=== PATIENT | male | born 1945 | race Caucasian/White ===

== ENCOUNTER 2022-11-21 16:01 | Inpatient (IN) | payer OTHER ==
[~2022-11-21] VITALS: Ht 177.8 cm; Wt 97.5 kg
[2022-11-21 17:20] LABS: BASO% 0.3 % (0-3); EOS% 0.1 % (0-8); IMMATURE GRANULOCYTES 1.2 % (0.0-5.0); LYMPH% 11.5 % (15-41); MEAN CELL VOLUME 92.2 fL CALC (80.0-100.0); MEAN CORPUSCULAR HGB 30.6 pG CALC (26.0-32.0); MEAN CORPUSCULAR HGB CONC 33.1 g/dL CAL (32.0-36.0); MONO% 5.9 % (2-13); NEUT# 12.59 thou/uL (1.82-7.42); RED BLOOD COUNT 1.8 mill/uL (4.70-6.10); RED CELL DISTRI WIDTH 15.2 % (11.5-15.5)
[2022-11-21 17:25] LABS: BILIRUBIN, TOTAL 0.2 mg/dL (0.0-1.4); CREATININE 2.3 mg/dL (0.7-1.3); TOTAL PROTEIN 5.4 g/dL (6.3-8.2)
[2022-11-21 17:38] LABS: HEMOGLOBIN 5.5 g/dl (14.0-18.0)
[2022-11-21 17:39] LABS: HEMATOCRIT 16.6 % (39.0-50.0)
[2022-11-21] MEDS ORDERED: POTASSIUM99 MG PO (18:45)
[2022-11-21] MEDS ORDERED: LEVOTHYROXIN50 MCG PO (18:45)
[2022-11-21] MEDS ORDERED: VERAPAMIL240 M1 PO (18:45)
[2022-11-21 21:11] VITALS: BP 125/70
[2022-11-21 22:38] VITALS: BP 98/73
[2022-11-21 22:55] VITALS: BP 137/82
[2022-11-21 23:40] VITALS: BP 119/78
[2022-11-22] VITALS (20 sets, daily range): BP systolic 111–141; BP diastolic 64–87
[2022-11-22 09:17] LABS: BASO% 0.4 % (0-3); EOS% 0.1 % (0-8); HEMATOCRIT 21.1 % (39.0-50.0); HEMOGLOBIN 7.2 g/dl (14.0-18.0); IMMATURE GRANULOCYTES 0.8 % (0.0-5.0); LYMPH% 13.9 % (15-41); MEAN CELL VOLUME 91.3 fL CALC (80.0-100.0); MEAN CORPUSCULAR HGB 31.2 pG CALC (26.0-32.0); MEAN CORPUSCULAR HGB CONC 34.1 g/dL CAL (32.0-36.0); NEUT# 9.51 thou/uL (1.82-7.42); NEUT% 74.8 % (42-76); RED BLOOD COUNT 2.31 mill/uL (4.70-6.10); RED CELL DISTRI WIDTH 14.7 % (11.5-15.5)
[2022-11-22 15:55] LABS: HEMOGLOBIN 7.1 g/dl (14.0-18.0)
[2022-11-23] VITALS (12 sets, daily range): BP systolic 109–157; BP diastolic 61–96
[2022-11-23 06:11] LABS: ALBUMIN 2.6 g/dL (3.2-5.0); CREATININE 2.2 mg/dL (0.7-1.3)
[2022-11-23 06:13] LABS: BASO% 0.4 % (0-3); EOS% 0.9 % (0-8); LYMPH% 17.8 % (15-41); MEAN CELL VOLUME 91.8 fL CALC (80.0-100.0); MEAN CORPUSCULAR HGB 31.6 pG CALC (26.0-32.0); MEAN CORPUSCULAR HGB CONC 34.4 g/dL CAL (32.0-36.0); MONO% 11.9 % (2-13); NEUT# 7.63 thou/uL (1.82-7.42); RED BLOOD COUNT 1.96 mill/uL (4.70-6.10); RED CELL DISTRI WIDTH 15.9 % (11.5-15.5)
[2022-11-23 06:25] LABS: BILIRUBIN, TOTAL 0.3 mg/dL (0.0-1.4); HEMOGLOBIN 6.2 g/dl (14.0-18.0); POTASSIUM 2.4 mmol/l (3.5-5.1)
[2022-11-23 16:52] LABS: HEMATOCRIT 21.6 % (39.0-50.0); HEMOGLOBIN 7.1 g/dl (14.0-18.0)
== END 2022-11-24 01:30 | disposition short-term general hospital (02) | DRG 378 ==
LOC: ED 16:01 → ED-I 20:02 → MS2 20:03 → ED 20:03 → MS2 11-22 08:53
PROVIDERS: Family Medicine; Internal Medicine; ADMIT Surgery; ATTEND Surgery
PROC: 30233N1 Transfusion of Nonautologous Red Blood Cells into Peripheral Vein, Percutaneous Approach (ICD-10-PCS; principal; 2022-11-21)
PROC: 30233N1 Transfusion of Nonautologous Red Blood Cells into Peripheral Vein, Percutaneous Approach (ICD-10-PCS; 2022-11-22)
PROC: 30233N1 Transfusion of Nonautologous Red Blood Cells into Peripheral Vein, Percutaneous Approach (ICD-10-PCS; 2022-11-22)
PROC: 0DB68ZX Excision of Stomach, Via Natural or Artificial Opening Endoscopic, Diagnostic (ICD-10-PCS; 2022-11-22)
PROC: 30233N1 Transfusion of Nonautologous Red Blood Cells into Peripheral Vein, Percutaneous Approach (ICD-10-PCS; 2022-11-23)
PROC: 30233N1 Transfusion of Nonautologous Red Blood Cells into Peripheral Vein, Percutaneous Approach (ICD-10-PCS; 2022-11-23)
PROC: 0DJD8ZZ Inspection of Lower Intestinal Tract, Via Natural or Artificial Opening Endoscopic (ICD-10-PCS; 2022-11-23)
DX: K92.1 Melena (principal); D62 Acute posthemorrhagic anemia; T39.395A Adverse effect of other nonsteroidal anti-inflammatory drugs [NSAID], initial encounter; K29.70 Gastritis, unspecified, without bleeding; K44.9 Diaphragmatic hernia without obstruction or gangrene; K57.30 Diverticulosis of large intestine without perforation or abscess without bleeding; I12.9 Hypertensive chronic kidney disease with stage 1 through stage 4 chronic kidney disease, or unspecified chronic kidney disease; N18.9 Chronic kidney disease, unspecified; M17.12 Unilateral primary osteoarthritis, left knee; E03.9 Hypothyroidism, unspecified; K64.8 Other hemorrhoids; E87.6 Hypokalemia; Z20.822 Contact with and (suspected) exposure to COVID-19
CPT/HCPCS: P9016; S0164